=== PATIENT | female | born 1985 | race Caucasian/White ===

== ENCOUNTER 2021-12-16 18:47 | Emergency (ER) | payer OTHER ==
[2021-12-16 19:07] VITALS: BMI 34.2
[2021-12-16] MEDS ORDERED: ACETAMINOPHEN 1000 MG/100 ML BAG IVPB ONE (19:45)
[2021-12-16] MEDS ORDERED: SODIUM CHLORIDE 0.9% 500 ML INFUS.BAG IV ONE (19:45)
[2021-12-16] MEDS ORDERED: ACETAMINOPHEN INJECTION 100 ML IVPB ONE (19:48)
[2021-12-16 21:07] LABS: EPI CELLS >36 /uL (0-25.1); HYALINE CASTS 7 /uL (0-3.1); URINE APPEARANCE TURBID; URINE BACTERIA 5235 /uL (0-1359); URINE BILIRUBIN NEGATIVE (NEGATIVE); URINE COLOR YELLOW; URINE GLUCOSE (UA) NEGATIVE (NEGATIVE); URINE KETONE NEGATIVE (NEGATIVE); URINE LEUK ESTERASE 3+ (NEGATIVE); URINE NITRITE NEGATIVE (NEGATIVE); URINE PROTEIN TRACE (NEGATIVE); URINE RBC 57 /uL (0-23.9); URINE UROBILINOGEN 0.2 mg/dL (0.2-1.0); URINE WBC 1970 /uL (0-25.8)
[2021-12-16 21:33] LABS: BASO % 0.4 % (0-2.0); EOS % 0.4 % (0-4.5); HEMATOCRIT 42.1 % (32.4-45.2); HEMOGLOBIN 13.5 GM/dL (10.7-15.3); LYMPH % 13.6 % (8-40); MCHC 32.1 g/dl (32.0-36.0); MEAN CELL VOLUME 71.8 fl (80-96); MEAN PLT VOLUME 8.9 fl (7.5-11.1); MONO % 6.2 % (3.8-10.2); NEUT % 79.4 % (42.8-82.8); PLATELET COUNT 308 10^3/uL (134-434); RBC 5.86 M/mm3 (3.60-5.2); RDW 13.8 % (11.6-15.6); WHITE BLOOD COUNT 14.4 K/mm3 (4.0-10.0)
[2021-12-16 21:55] LABS: CALCIUM 9.1 mg/dL (8.5-10.1)
[2021-12-16 21:56] LABS: ALBUMIN 3.9 g/dl (3.4-5.0); BLOOD UREA NITROGEN 10.5 mg/dL (7-18); MAGNESIUM 2.3 mg/dL (1.8-2.4)
[2021-12-16 21:59] LABS: CREATININE 0.8 mg/dL (0.55-1.3)
[2021-12-16 22:01] LABS: BILIRUBIN,TOTAL 0.6 mg/dL (0.2-1); TOT PROT 8.1 g/dl (6.4-8.2)
[2021-12-16] MEDS ORDERED: KETOROLAC TROMETHAMINE 15 MG/ML VIAL IVPUSH ONE (23:07)
[2021-12-16] MEDS ORDERED: KETOROLAC TROMETHAMINE 15 MG/ML VIAL ONE (23:28)
[2021-12-17] MEDS ORDERED: CEFTRIAXONE 1,000 MG in DEXTROSE 5%-WATER - 50 ML IVPB ONE (00:16)
[2021-12-17] MEDS ORDERED: CEFTRIAXONE 1 GM/50 ML BAG ONE (00:53)
[2021-12-17 01:32] VITALS: BP 103/49; PULSE 72; TEMP 98.1
== END 2021-12-17 01:51 | disposition home or self-care (01) ==
LOC: JER 18:47
PROC: 3E033GC Introduction of Other Therapeutic Substance into Peripheral Vein, Percutaneous Approach (ICD-10-PCS; principal; 2021-12-16)
DX: N12 Tubulo-interstitial nephritis, not specified as acute or chronic (principal)
CPT/HCPCS: 36415; 74176-TC; 76705-TC; 80053; 81003; 83690; 83735; 84703; 85025; 87086; 87186; 93005; 93010; 99285-25

== ENCOUNTER 2022-01-21 20:43 | Emergency (ER) | payer OTHER ==
[2022-01-21 21:10] VITALS: BMI 39.0
[2022-01-21] MEDS ORDERED: ONDANSETRON 4 MG TABLET PO ONE (22:09)
[2022-01-21] MEDS ORDERED: ACETAMINOPHEN 325 MG TABLET (FP) PO ONE (22:10)
[2022-01-21] MEDS ORDERED: ONDANSETRON 4 MG/2 ML VIAL ONE (22:32)
[2022-01-21] MEDS ORDERED: ACETAMINOPHEN 325 MG TABLET (FP) ONE (22:32)
[2022-01-21] MEDS ORDERED: ONDANSETRON 8 MG TABLET (FP) PO ONE (22:33)
[2022-01-21 22:57] LABS: HEMOGLOBIN 11.9 GM/dL (10.7-15.3); MCH 23.1 pg (25.7-33.7); MCHC 32.1 g/dl (32.0-36.0); MEAN CELL VOLUME 71.9 fl (80-96); MEAN PLT VOLUME 8.4 fl (7.5-11.1); PLATELET COUNT 276 10^3/uL (134-434); RBC 5.14 M/mm3 (3.60-5.2); RDW 13.9 % (11.6-15.6); WHITE BLOOD COUNT 10.9 K/mm3 (4.0-10.0)
[2022-01-21 23:05] LABS: HCG,QUALITATIVE URINE Negative
[2022-01-21 23:06] LABS: EPI CELLS >36 /uL (0-25.1); HYALINE CASTS 2 /uL (0-3.1); INR 1.09 (0.83-1.09); PROTHROMBIN TIME (PATIENT) 12.6 SEC (9.7-13.0); URINE APPEARANCE CLEAR; URINE BILIRUBIN 1+ (NEGATIVE); URINE COLOR DK YELLOW; URINE GLUCOSE (UA) NEGATIVE (NEGATIVE); URINE KETONE TRACE (NEGATIVE); URINE LEUK ESTERASE 1+ (NEGATIVE); URINE NITRITE POSITIVE (NEGATIVE); URINE PROTEIN NEGATIVE (NEGATIVE); URINE RBC 45 /uL (0-23.9); URINE WBC 9 /uL (0-25.8)
[2022-01-21 23:09] LABS: ACTIVATED PTT 32.9 SECONDS (25.2-36.5)
[2022-01-21 23:20] LABS: ALBUMIN 3.3 g/dl (3.4-5.0); CALCIUM 8.4 mg/dL (8.5-10.1)
[2022-01-21 23:23] LABS: CREATININE 0.8 mg/dL (0.55-1.3)
[2022-01-21 23:25] LABS: BILIRUBIN,TOTAL 0.2 mg/dL (0.2-1); TOT PROT 6.7 g/dl (6.4-8.2)
[2022-01-22 00:14] LABS: URINE BACTERIA 222.4 /uL (0-1359)
[2022-01-22] MEDS ORDERED: IBUPROFEN 400 MG TABLET (FP) PO ONE ×2 (01:35→01:41)
[2022-01-22] MEDS ORDERED: morphine CARPU-JECT 4 MG/1 ML DISP.SYRIN IVPUSH ONE (01:38)
[2022-01-22 05:01] VITALS: BP 115/81; PULSE 73; TEMP 98.1
== END 2022-01-22 05:09 | disposition home or self-care (01) ==
LOC: JER 20:43
PROC: 3E033NZ Introduction of Analgesics, Hypnotics, Sedatives into Peripheral Vein, Percutaneous Approach (ICD-10-PCS; principal; 2022-01-22)
DX: R10.9 Unspecified abdominal pain (principal)
CPT/HCPCS: 36415; 71101-TC-RT-FY; 76705-TC; 80053; 81003; 83690; 84703; 85027; 85379; 85610; 85730; 87086; 93005; 93010; 99284-25